=== PATIENT | male | born 2000 | race Caucasian/White ===

== ENCOUNTER 2021-02-17 13:47 | Emergency (ER) | payer OTHER, BC ==
[~2021-02-17] VITALS: Ht 180.3 cm; Wt 65.8 kg
== END 2021-02-17 15:22 | disposition home or self-care (01) ==
LOC: ER 13:47
DX: S93.401A Sprain of unspecified ligament of right ankle, initial encounter (principal); F17.200 Nicotine dependence, unspecified, uncomplicated; X50.1XXA Overexertion from prolonged static or awkward postures, initial encounter
CPT/HCPCS: 73610; 99283-25

== ENCOUNTER 2021-09-17 02:20 | Emergency (ER) | payer BC ==
[~2021-09-17] VITALS: Ht 180.3 cm; Wt 68.0 kg
== END 2021-09-18 03:50 | disposition left against medical advice (07) ==
LOC: ER 02:20
DX: Z53.21 Procedure and treatment not carried out due to patient leaving prior to being seen by health care provider (principal)

== ENCOUNTER 2023-07-24 13:47 | Emergency (ER) | payer OTHER ==
[~2023-07-24] VITALS: Ht 180.3 cm; Wt 83.9 kg
[2023-07-24 13:53] VITALS: BP 154/67
== END 2023-07-24 16:26 | disposition home or self-care (01) ==
LOC: ER 13:47
DX: S93.422A Sprain of deltoid ligament of left ankle, initial encounter (principal); S93.492A Sprain of other ligament of left ankle, initial encounter; S93.412A Sprain of calcaneofibular ligament of left ankle, initial encounter; X50.1XXA Overexertion from prolonged static or awkward postures, initial encounter; F17.210 Nicotine dependence, cigarettes, uncomplicated
CPT/HCPCS: 73610; 99283-25